=== PATIENT | male | born 1945 | race Caucasian/White ===

== ENCOUNTER 2019-10-03 22:21 | Inpatient (IN) | payer OTHER ==
[~2019-10-03] VITALS: Ht 175.3 cm; Wt 76.3 kg
[~2019-10-03 22:21] MED LIST: PANT20 PO
[2019-10-03] MEDS ORDERED: Nasal Spray30 ML NS (22:53)
[2019-10-03 23:03] LABS: BASOPHILS ABSOLUTE AUTO 0.06 K/mm3 (0.00-0.23); BASOPHILS PERCENT AUTO 1 % (0-2); EOSINOPHILS ABSOLUTE AUTO 0.41 K/mm3 (0.00-0.68); EOSINOPHILS PERCENT AUTO 3 % (0-6); Hematocrit 53.4 % (37.0-53.0); Hemoglobin 17.4 g/dL (13.5-17.5); IMMATURE GRAN ABSOLUTE AUTO 0.04 K/mm3 (0.00-0.10); IMMATURE GRAN PERCENT AUTO 0 % (0-1); LYMPHOCYTES ABSOLUTE AUTO 1.83 K/mm3 (0.84-5.20); LYMPHOCYTES PERCENT AUTO 15 % (21-46); MONOCYTES ABSOLUTE AUTO 0.67 K/mm3 (0.16-1.47); MONOCYTES PERCENT AUTO 5 % (4-13); Mean Corpuscular HGB 29.6 pg (26.0-34.0); Mean Corpuscular HGB Conc 32.6 g/dL (31.5-36.5); Mean Corpuscular Volume 91 fL (80-100); Mean Platelet Volume 9.2 fL (9.1-12.4); NEUTROPHILS ABSOLUTE AUTO 9.39 K/mm3 (1.96-9.15); NEUTROPHILS PERCENT AUTO 76 % (41-73); Platelet Count 220 K/mm3 (150-400); RDW Coefficient Variation 13.3 % (11.7-14.2); Red Blood Cell Count 5.87 M/mm3 (4.30-5.90)
[2019-10-03 23:18] LABS: Alanine Aminotransfer (ALT/SGP 22 U/L (12-78); Albumin, Blood 3.7 g/dL (3.4-5.0); Albumin/Globulin Ratio 0.9 (0.8-1.8); Alk Phos 60 U/L (50-136); Anion Gap 5 mmol/L (6-16); Aspartate Aminotrans (AST/SGOT 26 U/L (12-37); Bilirubin, Total 0.6 mg/dL (0.1-1.0); Blood Urea Nitrogen 14 mg/dL (8-24); Bun/Creatinine Ratio 12.1 (12.0-20.0); CO2, Blood 29 mmol/L (21-32); Calcium, Blood 9.1 mg/dL (8.5-10.1); Chloride, Blood 106 mmol/L (98-108); Creatinine, Blood 1.16 mg/dL (0.60-1.20); Glomerular Filtration Rate >60 (60-); Glucose, Blood 93 mg/dL (70-99); Potassium, Blood 3.9 mmol/L (3.5-5.5); Sodium, Blood 140 mmol/L (136-145); Total Protein, Blood 7.7 g/dL (6.4-8.2); Troponin I 0.019 ng/mL (0.000-0.040)
--- NOTE | 2019-10-04 01:30 | NUR ---
THIS RN CALLED ED TO RECEIVE REPORT ON PT. ED STATED THEY WOULD CALL BACK TO GIVE REPORT.
--- NOTE | 2019-10-04 02:02 | NUR ---
THIS RN CALLED [facility], ED RN TO RECEIVE REPORT ON PT. ED RN STATED HE WOULD CALL BACK.
[2019-10-04] MEDS ORDERED: TADALAFIL20 M1 PO (02:30)
--- NOTE | 2019-10-04 03:00 | NUR ---
RECEIVED REPORT FROM CHIO, ED RN. PT TRANSPORTED TO PCU VIA GURNEY, SELF-TRANSFERRED TO BED IN ROOM. IN NO ACUTE DISTRESS AT THIS TIME, ENGAGING IN CONVERSATION WITH THIS RN AND OTHER STAFF. DENIES ANY CP, PRESSURE, SOB. VS STABLE ON ADMISSION. DENIES ANY OTHER NEEDS AT THIS TIME. CALL LIGHT AND POSSESSIONS IN REACH, WILL CONTINUE TO MONITOR.
--- NOTE | 2019-10-04 06:22 | NUR ---
SHIFT SUMMARY: PT REMAINS ASLEEP AT THIS TIME, NO S/S ACUTE DISTRESS OR FURTHER C/O CP SINCE ADMISSION. VS STABLE. WAS MONITORED EVERY 1-2 HOURS WITH NEEDS MET, PT COMFORTABLE. DENIES ANY NEEDS AT THIS TIME. CALL LIGHT AND POSSESSIONS WITHIN REACH OF PT.
--- NOTE | 2019-10-04 09:38 | NUR ---
Echocardiogram completed.
[2019-10-04 09:51] LABS: Hematocrit 45.8 % (37.0-53.0); Hemoglobin 15.1 g/dL (13.5-17.5); Mean Corpuscular HGB 29.4 pg (26.0-34.0); Mean Corpuscular Volume 89 fL (80-100); Mean Platelet Volume 9.2 fL (9.1-12.4); Platelet Count 181 K/mm3 (150-400); RDW Coefficient Variation 13.3 % (11.7-14.2); RDW Standard Deviation 43.5 fL (35.1-46.3); Red Blood Cell Count 5.13 M/mm3 (4.30-5.90); White Blood Cell Count 12.05 K/mm3 (4.00-11.30)
[2019-10-04 10:09] LABS: Anion Gap 5 mmol/L (6-16); Blood Urea Nitrogen 12 mg/dL (8-24); Bun/Creatinine Ratio 12.8 (12.0-20.0); CO2, Blood 25 mmol/L (21-32); Calcium, Blood 8.2 mg/dL (8.5-10.1); Chloride, Blood 111 mmol/L (98-108); Creatinine, Blood 0.93 mg/dL (0.60-1.20); Glomerular Filtration Rate >60 (60-); Glucose, Blood 100 mg/dL (70-99); Potassium, Blood 3.8 mmol/L (3.5-5.5); Sodium, Blood 141 mmol/L (136-145)
[2019-10-04 13:04] LABS: International Normalized Ratio 1.01; Prothrombin Time Results 10.8 Sec (9.7-11.5)
--- NOTE | 2019-10-04 19:15 | NUR ---
Assumed Care Assumed care of pt at 1915 from KERRI Huang. pt is S/P angiogram. R Radial access site visualized with offgoing RN. Site with dried blood present under TR site, slight bruising above site. Sensation intact throughout R hand. Pt is alert and oriented, VSS, making needs known with call light. See shift assessment for detailed systems assesment. Pt denies chest pain or pressure, denies generalized pain. Tele showing sinus rhythm in 70's. No acute concerns to note at start of shift. Will continue to monitor.
--- NOTE | 2019-10-04 20:15 | NUR ---
SHIFT SUMMARY PT IS A&O X4, VSS, ON ROOM AIR. POST ANGIO TODAY W A RIGHT RADIAL TR BAND IN PLACE. NO 4 ML'S OF AIR REMAINS IN THE BALLOON, NO HEMATOMA/BRUISING PRESENT, SCANT AMOUNT OF BLOOD PRESENT UNDER THE BAND, PT DENIES PAIN, N/T TO HIS HAND, CIRC WNL, DENIES CP OR SOB. PT IS TOLERATING PO INTAKE, VOIDING WNL. REPORT WAS GIVEN TO ERNESTINE RN, TR BAND CHECKED AT THE BEDSIDE, CALL LIGHT IN REACH.
[2019-10-05 04:16] LABS: BASOPHILS ABSOLUTE AUTO 0.05 K/mm3 (0.00-0.23); BASOPHILS PERCENT AUTO 1 % (0-2); EOSINOPHILS ABSOLUTE AUTO 0.23 K/mm3 (0.00-0.68); EOSINOPHILS PERCENT AUTO 2 % (0-6); Hematocrit 42.6 % (37.0-53.0); Hemoglobin 14.4 g/dL (13.5-17.5); IMMATURE GRAN ABSOLUTE AUTO 0.05 K/mm3 (0.00-0.10); IMMATURE GRAN PERCENT AUTO 1 % (0-1); LYMPHOCYTES ABSOLUTE AUTO 1.48 K/mm3 (0.84-5.20); LYMPHOCYTES PERCENT AUTO 15 % (21-46); MONOCYTES ABSOLUTE AUTO 0.79 K/mm3 (0.16-1.47); MONOCYTES PERCENT AUTO 8 % (4-13); Mean Corpuscular HGB 30.3 pg (26.0-34.0); Mean Corpuscular HGB Conc 33.8 g/dL (31.5-36.5); Mean Corpuscular Volume 90 fL (80-100); Mean Platelet Volume 9.2 fL (9.1-12.4); NEUTROPHILS PERCENT AUTO 73 % (41-73); Platelet Count 168 K/mm3 (150-400); RDW Coefficient Variation 13.3 % (11.7-14.2); RDW Standard Deviation 43.9 fL (35.1-46.3); Red Blood Cell Count 4.76 M/mm3 (4.30-5.90)
[2019-10-05 04:43] LABS: Alanine Aminotransfer (ALT/SGP 60 U/L (12-78); Albumin, Blood 2.7 g/dL (3.4-5.0); Albumin/Globulin Ratio 0.8 (0.8-1.8); Alk Phos 63 U/L (50-136); Anion Gap 5 mmol/L (6-16); Aspartate Aminotrans (AST/SGOT 65 U/L (12-37); Bilirubin, Total 2.3 mg/dL (0.1-1.0); Blood Urea Nitrogen 10 mg/dL (8-24); Bun/Creatinine Ratio 10.6 (12.0-20.0); CHOL/HDL RATIO 3.2; CO2, Blood 25 mmol/L (21-32); Calcium, Blood 8.1 mg/dL (8.5-10.1); Chloride, Blood 109 mmol/L (98-108); Cholesterol 138 mg/dL (50-200); Creatinine, Blood 0.94 mg/dL (0.60-1.20); Globulin, Blood 3.4 g/dL (2.2-4.0); Glomerular Filtration Rate >60 (60-); Glucose, Blood 93 mg/dL (70-99); HDL Cholesterol 43 mg/dL (>39); LDL/HDL RATIO 1.9; Low Density Lipoprotein Chol 80 mg/dL (0-110); Potassium, Blood 3.6 mmol/L (3.5-5.5); Sodium, Blood 139 mmol/L (136-145); Total Protein, Blood 6.1 g/dL (6.4-8.2); Triglycerides 77 mg/dL (30-160); Very Low Density Lipoprot Chol 15 mg/dL (6-32)
[2019-10-05 04:44] LABS: Troponin I 0.329 ng/mL (0.000-0.040)
--- NOTE | 2019-10-05 05:37 | NUR ---
Shift Summary No acute events overnight. Pt remains with VSS, no apparent signs of distress, denies pain. R radial access site fully recovered at 195, TR band removed two hours after fully recovered, tegaderm placed over access site, arm board in place, pt is compliant with R arm restriction. Tele shows sinus lizzy while sleeping with rates in 50's. No acute changes from initial shift assessment. Lab work notable for elevated AST 65, elevated troponin 0.329. Will continue to monitor.
--- NOTE | 2019-10-05 07:53 | NUR ---
REPORT RECEIVED FROM KERRI CLINE ON NOC SHIFT. PT IS ALERT, ORIENTED X3, NO C/O PAIN. DENIES CHEST PAIN, NO EDEMA NOTED. RIGHT RADIAL SITE SOFT, NON-TENDER WITHOUT SWELLING OR DISCOLORATION. LUNG SOUNDS WITH FAINT FINE CRACKLES AT BASES. STABLE OXYGENATION ON ROOM AIR. IV SITE TO RIGHT AC PATENT, NO REDNESS, SWELLING OR TENDERNESS NOTED. ABDOMEN ROUND, SOFT, WITH BOWEL TONES NOTED IN ALL QUADRANTS. PT DENIES NAUSEA. BED IN LOW POSITION, CALL MELARA WITHIN REACH.
[2019-10-05] MEDS ORDERED: Aspir 8181 MG PO (09:50)
[2019-10-05] MEDS ORDERED: ACET325 PO (09:50)
[2019-10-05] MEDS ORDERED: METO25ER PO (09:51)
[2019-10-05] MEDS ORDERED: NITR.4SL SL (09:51)
[2019-10-05] MEDS ORDERED: CLOP75 PO (09:51)
--- NOTE | 2019-10-05 10:26 | NUR ---
DISCHARGE NOTE: EDUCATION ON NEW MEDICATIONS, METOPROLOL, CLOPIDIGROL, ASPIRIN, NITROGLYCERIN, LIFTING PRECAUTIONS, RIGHT RADIAL PRECAUTIONS, BLEEDING PRECAUTIONS. PT HRR, NO C/O CHEST PAIN, DENIES CHEST PAIN OR SHORTNESS OF BREATH, STABLE VITAL SIGNS, IV DC'D, PT AMBULATED OUT OF UNIT, WITH , STABLE GAIT NOTED. .
== END 2019-10-05 10:34 | disposition home or self-care (01) | DRG 287 ==
LOC: ER 22:21 → PCU 22:22
PROVIDERS: Emergency Medicine; Family Medicine; Internal Medicine Cardiovascular Disease; Nurse Practitioner Acute Care; ADMIT Internal Medicine
PROC: 4A023N7 Measurement of Cardiac Sampling and Pressure, Left Heart, Percutaneous Approach (ICD-10-PCS; principal; 2019-10-04)
PROC: B2111ZZ Fluoroscopy of Multiple Coronary Arteries using Low Osmolar Contrast (ICD-10-PCS; 2019-10-04)
DX: I24.9 Acute ischemic heart disease, unspecified (principal); I25.10 Atherosclerotic heart disease of native coronary artery without angina pectoris; I95.9 Hypotension, unspecified; R00.1 Bradycardia, unspecified; G47.33 Obstructive sleep apnea (adult) (pediatric); K21.9 Gastro-esophageal reflux disease without esophagitis; E78.5 Hyperlipidemia, unspecified; N52.9 Male erectile dysfunction, unspecified; J30.9 Allergic rhinitis, unspecified; Z79.899 Other long term (current) drug therapy; Z88.5 Allergy status to narcotic agent; Z88.8 Allergy status to other drugs, medicaments and biological substances; Z82.49 Family history of ischemic heart disease and other diseases of the circulatory system
CPT/HCPCS: 36415; 71275; 74175; 80048; 80053; 80061; 84484; 85025; 85027; 85610; 85730; 86850; 86900; 86901; 93005; 93010; 93306; 93458; 96360-59; 96361; 96372; 99152; 99153; 99285-25; A9270-GY; C1769; C1894; G0378; J1644; J1650; J2250; J3010; J3480; J7030; J7040; Q9967